=== PATIENT | male | born 1955 | race Caucasian/White ===

== ENCOUNTER 2021-08-12 21:58 | Emergency (ER) | payer MEDICARE, BC, SELFPAY ==
[2021-08-12] VITALS (8 sets, daily range): BP systolic 141–219; BP diastolic 87–123; PULSE 78–91; RESP 15–23; TEMP 36.9; O2SAT 94–97
--- NOTE | ~2021-08-12 | XR_ITS ---
EXAMINATION: XR chest 1V portable INDICATION: Hypertension TECHNIQUE: Portable AP chest at 2245 hours COMPARISON: None available FINDINGS: There are airspace opacities of the left lung base. There is no pleural effusion or pneumot horax. Calcified pulmonary nodules and calcified bilateral hilar and mediastinal lymph nodes are cons istent with old granulomatous disease. The heart size is normal. A cardiac monitoring device projects over the left heart. IMPRESSION: 1. Left basilar airspace opacities, consistent with atelectasis versus pneumonia. Reviewed, dictated and finalized at location A. IMPRESSION: 1. Left basilar airspace opacities, consistent with atelectasis versus pneumoni a.
--- NOTE | 2021-08-12 22:02 | ECG_ITS ---
Measurements Intervals [place] Rate: 88 P: 51 VA: 156 QRS: -16 QRSD: 106 T: 34 QT: 363 QTc: 440 Interpretive Statements SINUS RHYTHM VOLTAGE CRITERIA FOR LVH BASELINE ARTIFACT- I, II, III, AVR, AVF, V1-V6 BORDERLINE ECG Electronically Signed On 08-14-2021 9:49:31 CDT by Rakesh Martinez D.O.
--- NOTE | 2021-08-12 22:25 | ED.GENADULT ---
HPI - General Adult General Chief complaint: Recheck/Abnormal Lab/Rx Stated complaint: HTN and left arm numbness Time Seen by Provider: 08/12/21 22:04 Source: patient and RN notes reviewed Mode of arrival: ambulatory Limitations: no limitations History of Present Illness HPI narrative: 65-year-old male with history of hypertension, CVA and ME presented to the emergency department for evaluation of elevated blood pressure. Patient states he returned home and was going to take his carvedilol and noticed that his blood pressure was elevated. Patient states he takes his carvedilol 25 mg twice a day and that his p.m. dose was a little late due to having a busy day. Patient states his blood pressure this evening was 240 systolic. Patient does have clonidine as needed for elevated blood pressure and patient also took this at 8 PM. Patient checked his blood pressure approximately an hour after taking the meds and noted it was still elevated. While the blood pressure cuff was running he states he did have some increased tightness, pressure of the left arm but states that has since resolved. Patient's most recent CVA was approximately 7 weeks ago. Patient does have some residual right-sided weakness but states he is having no change in those symptoms this evening. Patient denies any chest pain or shortness of breath. Patient denies any nausea vomiting or diarrhea. Patient denies any acute neurologic changes. Related Data Home Medications Medication Instructions Recorded Confirmed carvedilol 25 mg PO BID 08/12/21 clonidine HCl PRN 08/12/21 nitroglycerin 0.4 mg SUBLINGUAL Q5-15M PRN 08/12/21 Allergies Allergy/AdvReac Type Severity Reaction Status Date / Time Penicillins Allergy Swelling Verified 08/12/21 22:05 [id number] Reductase Allergy Muscle Pain Verified 08/12/21 22:05 Inhibitor Review of Systems Review of Systems: CONSTITUTIONAL: Denies fever, chills, or sweats. EYES: Denies visual changes, redness, or discharge. ENT: Denies rhinorrhea, congestion, sore throat, or otalgia. CARDIOVASCULAR: Denies chest pain, palpitations, or edema. RESPIRATORY: Denies cough or dyspnea. GASTROINTESTINAL: Denies abdominal pain, nausea, vomiting, or diarrhea. GENITOURINARY: Denies dysuria or hematuria. SKIN: Denies rash or itching. MUSCULOSKELETAL: Denies back pain, joint pain, or myalgia. NEUROLOGIC: Denies headache, numbness, or weakness. Exam Narrative: APPEARANCE: Well appearing, no pain, no distress, well-nourished. HEAD: normocephalic, atraumatic. EYES: PERRLA/EOMI, conjunctivae clear. NOSE: Normal no drainage NECK: Supple. No adenopathy, no masses. RESPIRATORY: Airway patent, respirations nonlabored. Clear to auscultation bilaterally, no rales, rhonchi, wheezing. CARDIOVASCULAR: Regular rate and rhythm without murmurs rubs or gallops. ABDOMINAL: Soft, nontender, nondistended, normal bowel sounds MUSCULOSKELETAL: Moves all extremities. Strength/ROM intact, No edema, No calf tenderness. NEURO: Alert. Cranial nerves II through XII intact. Grossly intact and at his neuro baseline SKIN: Warm, dry. Normal Color Course Course Emergency Course: Upon arrival to the ED patient's blood pressure is beginning to improve. During the patient's stay in the ED his blood pressure did improve to 120s to 130s systolic. Patient does have instructions that he can use his clonidine up to 8 times. Patient did take 3 clonidine and 8 PM with his normal nighttime meds. 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 Patient and are comfortable with the plan for discharge and close follow-up. All questions concerns were addressed. Patient was symptom-free at time of discharge Vital Signs Vital signs: Vital Signs Temperature 98.5 F 08/12/21 21:57 Pulse Rate 91 08/12/21 21:57 Respiratory Rate 20 08/12/21 21:57 Blood Pressure 219/123 H 08/12/21 21:57 Pulse Oximetry 97 08/12/21 21:57 Temperatu
[2021-08-12 22:33] LABS: Appearance Urine Clear (Clear); Basophils Percent Auto 0.5 % (0.2-1.2); Bilirubin Urine Negative (Negative); Blood Urine Trace-lysed (Negative); Eosinophils Absolute Auto 0.4 K/mm3 (0-0.3); Glucose Urine UA 2+ mg/dL (Negative); Hematocrit 45.4 % (42.0-52.0); Hemoglobin 15.7 g/dL (14.0-18.0); Immature Granulocyte Absolute 0.02 K/mm3 (0.00-0.031); Immature Granulocyte Percent A 0.3 % (0-0.5); Ketones Urine Negative (Negative); Leukocyte Esterase Ur Negative LEU/UL (Negative); Lymphocytes Absolute Auto 3.32 K/mm3 (0.9-3.2); Lymphocytes Percent Auto 42.5 % (18.3-44.2); Mean Corpuscular HGB Conc 34.6 g/dl (32-36); Mean Corpuscular Hemoglobin 31.3 pg (26-34); Mean Corpuscular Volume 90.4 fl (80-100); Mean Platelet Volume 9.8 fl (7.4-10.4); Monocytes Absolute Auto 0.6 K/mm3 (0.1-0.6); Monocytes Percent Auto 7.2 % (2.6-8.5); Neutrophils Absolute Auto 3.5 K/mm3 (1.3-6.7); Neutrophils Percent Auto 44.5 % (45.5-73.1); Nitrate Urine Negative (Negative); Platelet Count Result 184 k/mm3 (150-375); Protein Urine 1+ mg/dL (Negative); Red Blood Count 5.02 M/mm3 (4.6-6.20); Red Cell Distribution Width 12.4 % (11.5-14.5); Specific Grav Ur 1.015 (1.001-1.035); Urobilinogen Urine 0.2 mg/dL (<2.0); White Blood Count 7.8 K/mm3 (4.5-10.0)
[2021-08-12 22:34] LABS: Add Urine Microscopic? YES; Color Urine Light Yellow (Yellow)
[2021-08-12 22:43] LABS: INR 0.9; Prothrombin Time 12.2 Seconds (11.1-14.7)
[2021-08-12 22:44] LABS: Partial Thromboplastin Time 29.7 SECONDS (22.3-36.8)
[2021-08-12 23:00] LABS: Alanine Aminotransferase 33 U/L (6-50); Albumin Level 4.8 g/dL (3.5-5.1); Alkaline Phosphatase 54 U/L (38-126); Anion Gap 11 mmol/L (8-16); Aspartate Amino Transferase 36 U/L (17-59); Bilirubin,Total 0.4 mg/dL (0.2-1.3); Blood Urea Nitrogen 14 mg/dL (9-20); Calcium 9.4 mg/dL (8.4-10.2); Carbon Dioxide 26 mmol/L (22-30); Chloride 101 mmol/L (98-107); Estimated CRCL calculation 105 ml/min; Estimated Glomerular Filt Rate > 60; Glucose 217 mg/dL (65-110); NT Pro B Type Natriuretic Pept 153 pg/mL (5-100); Potassium 3.6 mmol/L (3.4-5.0); Sodium 138 mmol/L (137-145)
[2021-08-12 23:07] LABS: Troponin I < 0.012 ng/mL (0.000-0.034)
[2021-08-13] VITALS: PULSE 77; RESP 20; O2SAT 92
[2021-08-13 00:31] VITALS: PULSE 75; RESP 16; O2SAT 94
[2021-08-13 00:41] VITALS: BP 122/77; PULSE 72; RESP 19; O2SAT 95
[2021-08-13 00:45] VITALS: PULSE 77; RESP 22; O2SAT 97
[2021-08-13 01:23] VITALS: BP 138/89; PULSE 69; RESP 18; O2SAT 95
[2021-08-13 10:42] LABS: Glucose Point of Care 259 mg/dl (65-105)
== END 2021-08-13 01:25 | disposition home or self-care (01) ==
PROVIDERS: Emergency Provider Emergency Medicine
DX: I10 Essential (primary) hypertension (principal); I69.951 Hemiplegia and hemiparesis following unspecified cerebrovascular disease affecting right dominant side; I25.2 Old myocardial infarction; R94.31 Abnormal electrocardiogram [ECG] [EKG]; R91.8 Other nonspecific abnormal finding of lung field
CPT/HCPCS: 36415; 71045; 80053; 81001; 82948; 83880; 84484; 85025; 85610; 85730; 93005; 99284